=== PATIENT | male | born 1985 | race Caucasian/White ===

== ENCOUNTER 2019-03-30 14:49 | Emergency (ER) | payer SELFPAY ==
[2019-03-30] MEDS: HYDROCODONE/APAP (10/325) TAB PO (17:33)
== END 2019-03-30 19:46 | disposition home or self-care (01) ==
LOC: FTE 14:49
DX: S63.280A Dislocation of proximal interphalangeal joint of right index finger, initial encounter (principal); W23.0XXA Caught, crushed, jammed, or pinched between moving objects, initial encounter; Y92.89 Other specified places as the place of occurrence of the external cause
CPT/HCPCS: 26770; 73120-52; 73140; 99283-25